=== PATIENT | female | born 1995 | race Caucasian/White ===

== ENCOUNTER 2023-03-18 13:46 | Emergency (ER) | payer MEDICAID ==
[~2023-03-18] VITALS: Ht 162.6 cm; Wt 56.0 kg
[2023-03-18] MEDS ORDERED: LORAZEPAM 2MG/ML INJ IM ONE (14:45)
[2023-03-18] MEDS ORDERED: HALOPERIDOL LACTATE 5MG/ML VIAL IM ONE (14:45)
[2023-03-18] MEDS ORDERED: DIPHENHYDRAMINE 50MG/ML VIAL IM ONE (15:30)
[2023-03-18 15:35] LABS: BASOPHILS % 0.4 % (0.0-2.0); EOSINOPHILS % 0.1 % (0.0-5.0); HEMATOCRIT. 34.5 % (36.0-48.0); HEMOGLOBIN. 11.5 g/dL (12.0-16.0); LYMPHOCYTES % 10.4 % (20.0-50.0); MEAN CORPUSCULAR HEMOGLOBIN 28.2 pg (28.0-32.0); MEAN CORPUSCULAR HGB CONC 33.3 g/dL (31.0-37.0); MEAN CORPUSCULAR VOLUME 84.6 fL (81.0-99.0); MEAN PLATELET VOLUME 9.3 fl (7.4-10.4); MONOCYTES % 14.5 % (2.0-8.0); NEUTROPHILS % 74.6 % (40.0-76.0); PLATELET 172 x1000/uL (130-400); RED BLOOD CELL COUNT 4.08 mill/uL (4.2-5.4); RED CELL DISTRIBUTION WIDTH 15.5 % (11.6-14.6)
[2023-03-18 15:53] LABS: ACETAMINOPHEN < 2 ug/mL (10-30); ALANINE AMINOTRANSFERASE 15 IU/L (10-49); ALBUMIN 4.3 g/dL (3.2-4.8); ASPARTATE AMINOTRANSFERASE 49 IU/L (<34); CALCIUM 9.5 mg/dL (8.7-10.4); CARBON DIOXIDE 29 mEq/L (21-32); CHLORIDE 101 mEq/L (98-107); CREATININE 0.6 mg/dL (0.6-1.0); GLUCOSE 129 mg/dL (70-105); POTASSIUM 3.5 mEq/L (3.5-5.1); PROTEIN TOTAL 7.9 g/dL (6.0-8.3); SODIUM 139 mEq/L (136-145); THYROID STIMULATING HORMONE 4.07 uIU/mL (0.55-4.78); UREA NITROGEN BLOOD 11 mg/dL (9-23)
[2023-03-18] MEDS ORDERED: ZIPRASIDONE MESYLATE 20MG/VIAL IM ONE (16:00)
[2023-03-18 16:01] LABS: ETHANOL BLOOD < 10 mg/dL (<10)
[2023-03-18 16:16] LABS: HCG SCREEN NEGATIVE
[2023-03-19] MEDS ORDERED: DIPHENHYDRAMINE 50MG/ML VIAL IM ONE (02:00)
[2023-03-19] MEDS ORDERED: HALOPERIDOL LACTATE 5MG/ML VIAL IM ONE (02:00)
[2023-03-19] MEDS ORDERED: ZIPRASIDONE MESYLATE 20MG/VIAL IM NR (02:00)
[2023-03-19] MEDS ORDERED: ZIPRASIDONE MESYLATE 20MG/VIAL IM ONE (02:00)
[2023-03-19] MEDS ORDERED: LORAZEPAM 2MG/ML INJ IM STA (12:44)
[2023-03-19] MEDS ORDERED: OLANZAPINE 10 MG/VIAL IM STA (12:44)
[2023-03-20] MEDS ORDERED: OLANZAPINE 10 MG/VIAL IM NR (10:30)
[2023-03-20] MEDS ORDERED: OLANZAPINE 10 MG/VIAL IM ONE (10:30)
[2023-03-20] MEDS ORDERED: LORAZEPAM 2MG/ML INJ IM ONE (10:30)
[2023-03-20] MEDS ORDERED: LORAZEPAM 2MG/ML INJ IM NR (10:30)
[2023-03-20] MEDS: OLANZAPINE 5MG TABLET ODT PO SCH (17:47)
[2023-03-21] MEDS ORDERED: OLANZAPINE 10 MG/VIAL IM ONE ×3 (07:30→19:30)
[2023-03-21] MEDS ORDERED: LORAZEPAM 2MG/ML INJ IM ONE (07:30)
[2023-03-21] MEDS: OLANZAPINE 5MG TABLET ODT PO SCH ×2 (08:04→17:00)
[2023-03-21 14:37] LABS: CLARITY URINE CLOUDY (CLEAR); COLOR URINE YELLOW (YELLOW); GLUCOSE URINE NEGATIVE (NEGATIVE); KETONES URINE TRACE (NEGATIVE); LEUKOCYTE ESTERASE URINE TRACE (NEGATIVE); NITRITE URINE NEGATIVE (NEGATIVE); OCCULT BLOOD URINE 1+ (NEGATIVE); PH URINE 6.5 (4.5-8.0); PROTEIN URINE NEGATIVE (NEGATIVE); SPECIFIC GRAVITY URINE 1.026 (1.005-1.030)
[2023-03-21 15:34] LABS: *AMPHETAMINES SCREEN URINE NEGATIVE (NEGATIVE); *BARBITURATES SCREEN URINE NEGATIVE (NEGATIVE); *BENZODIAZEPINES SCREEN URINE NEGATIVE (NEGATIVE); *COCAINE SCREEN URINE NEGATIVE (NEGATIVE); CANNABINOID URINE SCREEN NEGATIVE (NEGATIVE); ECSTASY MDMA SCREEN URINE NEGATIVE (NEGATIVE); METHADONE URINE SCREEN Neg (NEGATIVE); OPIATES URINE SCREEN NEGATIVE (NEGATIVE); PHENCYCLIDINE URINE SCREEN NEGATIVE (NEGATIVE)
[2023-03-21 17:49] LABS: AMORPHOUS SEDIMENT URINE 2+ /lpf; BACTERIA URINE 1+; CALCIUM OXALATE CRYSTALS URINE 1+ /lpf; SQUAMOUS EPITHELIAL CELL URINE 1+ /lpf (RARE/1+); WBC URINE 0-2 /hpf (0-2)
[2023-03-22] MEDS: OLANZAPINE 5MG TABLET ODT PO SCH ×2 (09:00→17:26)
[2023-03-22] MEDS ORDERED: LORAZEPAM 2MG/ML INJ IM ONE (11:45)
[2023-03-22] MEDS ORDERED: OLANZAPINE 10 MG/VIAL IM ONE ×2 (11:45→16:45)
[2023-03-22] MEDS ORDERED: HALOPERIDOL LACTATE 5MG/ML VIAL IM ONE (20:15)
[2023-03-22] MEDS ORDERED: DIPHENHYDRAMINE 50MG/ML VIAL IM PRN (20:15)
[2023-03-22] MEDS ORDERED: MIDAZOLAM HCL 2 MG/2 ML VIAL IM ONE ×2 (20:15)
[2023-03-23] MEDS: OLANZAPINE 5MG TABLET ODT PO SCH ×2 (09:00→17:42)
[2023-03-23] MEDS ORDERED: LORAZEPAM 2MG/ML INJ IM ONE (09:45)
[2023-03-23] MEDS ORDERED: HALOPERIDOL LACTATE 5MG/ML VIAL IM ONE ×3 (09:45→20:30)
[2023-03-23] MEDS ORDERED: ZIPRASIDONE MESYLATE 20MG/VIAL IM ONE (10:30)
[2023-03-23] MEDS ORDERED: OLANZAPINE 10 MG/VIAL IM ONE (15:00)
[2023-03-23] MEDS ORDERED: MIDAZOLAM HCL 2 MG/2 ML VIAL IM ONE (19:15)
[2023-03-23 20:54] VITALS: O2SAT 99
[2023-03-24 06:45] VITALS: TEMP 98
[2023-03-24 08:45] VITALS: BP 112/68; PULSE 81; RESP 18
[2023-03-24] MEDS: OLANZAPINE 5MG TABLET ODT PO SCH (09:00)
== END 2023-03-24 09:32 | disposition home or self-care (01) ==
LOC: EDBD 13:46 → ER 13:46
DX: H57.89 Other specified disorders of eye and adnexa (principal); Z20.822 Contact with and (suspected) exposure to COVID-19
CPT/HCPCS: 80053; 80305; 81001; 80307; 80329; 80320; 84703; 84443; 85025; 36415; 70450; 70480; 96372 ×2; 99285; 87426; J1200 ×2; J1630 ×3; J2060 ×6; J3486 ×3; C9803; Z7610 ×2; J3490 ×5; J2250 ×2; G0480